=== PATIENT | male | born 1975 | race Caucasian/White ===

== ENCOUNTER 2023-06-14 13:51 | Outpatient (CLI) | payer OTHER | END 2023-06-14 13:52 | disposition home or self-care (01) | LOC: CSHWCC 13:51 | PROVIDERS: ATTEND Physician Assistant | DX: L98.491 Non-pressure chronic ulcer of skin of other sites limited to breakdown of skin (principal); K94.10 Enterostomy complication, unspecified | CPT/HCPCS: 99213; G0463 ==

== ENCOUNTER 2024-03-27 13:51 | Outpatient (CLI) | payer OTHER | END 2024-03-27 13:52 | disposition home or self-care (01) | LOC: CSHDTY/OP 13:51 | PROVIDERS: ATTEND Surgery | DX: E66.01 Morbid (severe) obesity due to excess calories (principal) | CPT/HCPCS: 97802 ==

== ENCOUNTER 2024-04-26 11:20 | Outpatient (CLI) | payer OTHER | END 2024-04-26 11:21 | disposition home or self-care (01) | LOC: CSHDTY/OP 11:20 | PROVIDERS: ATTEND Surgery | DX: E66.01 Morbid (severe) obesity due to excess calories (principal) | CPT/HCPCS: 97802 ==